=== PATIENT | male | born 1990 | race Caucasian/White ===

== ENCOUNTER 2017-08-30 21:57 | Emergency (ER) | payer SELFPAY ==
[2017-08-30] MEDS ORDERED: ONDANSETRON 4 MG/2 ML VIAL ONE (22:23)
[2017-08-30] MEDS ORDERED: KETOROLAC 30 MG/ML INJ ONE (22:23)
[2017-08-30] MEDS ORDERED: MORPHINE 4 MG/ML SYR ONE (22:43)
[2017-08-30 22:51] LABS: Absolute Lymphocytes (CBC) 2.3 K/uL (0.7-4.9); Absolute Monocytes 0.7 K/uL (0.1-1.3); Absolute Neutrophil 9.1 K/uL (1.8-8.0); Basophils % 0.5 % (0-1.3); Eosinophils % 0.9 % (0-4.4); Hematocrit 45.6 % (39.6-49.0); Lymphocytes % 18.5 % (15.3-44.8); MCH 31.1 pg (27.0-35.0); MCV 90.7 fL (80-100); RBC Red Blood Cell Count 5.03 M/uL (4.33-5.43)
[2017-08-30 22:56] LABS: Potassium 3.2 mEq/L (3.6-5.0)
[2017-08-30 23:03] LABS: Albumin 4.9 g/dL (3.2-5.5); Bilirubin Direct 0.1 mg/dL (0-0.2); Bilirubin Total 0.7 mg/dL (0.3-1.2); Protein, Total 7.7 g/dL (6.0-8.3)
[2017-08-30] MEDS ORDERED: POTASSIUM 25 MEQ EFFERV TAB ONE (23:23)
[2017-08-30] MEDS ORDERED: POTASSIUM CL SA 10 MEQ TAB PO ONE (23:33)
--- NOTE | 2017-08-31 00:14 | EDPHYS ---
Physician Documentation [facility] Name: Garrick Choe Age: 27 yrs Sex: Male : 1990 Arrival Date: 08/30/2017 Time: 22:01 Bed 16 Private MD: ED Physician Yamil Walker HPI: 08/30 23:29 This 27 yrs old Male presents to ER via Wheelchair with complaints of wa Possible Kidney Stone. 23:29 The patient complains of pain in the left flank. The pain does not radiate. Onset: The wa symptoms/episode began/occurred suddenly, just prior to arrival. Modifying factors: The symptoms are alleviated by nothing. the symptoms are aggravated by nothing. Associated signs and symptoms: Pertinent positives: nausea, Pertinent negatives: hematuria. Severity of pain: At its worst the pain was severe in the emergency department the pain is actually worse markedly. The patient has experienced similar episodes in the past, a few times. The patient has not recently seen a physician. Historical: - Allergies: 22:02 No Known Allergies; aj - Home Meds: 22:02 Seroquel Oral [Active]; Celexa Oral [Active]; aj - PMHx: 22:02 Seizures; Kidney stones; aj - PSHx: 22:02 None; aj - Immunization history:: Adult Immunizations up to date. - Social history:: Smoking status: Patient/guardian denies using tobacco. - Ebola Screening: : Patient negative for fever greater than or equal to 101.5 degrees Fahrenheit, and additional compatible Ebola Virus Disease symptoms Patient denies exposure to infectious person Patient denies travel to an Ebola-affected area in the 21 days before illness onset No symptoms or risks identified at this time. - Family history:: not pertinent. - Hospitalizations: : No recent hospitalization is reported. ROS: 23:31 Constitutional: Negative for fever, chills, and weight loss, Eyes: Negative for injury, wa pain, redness, and discharge, ENT: Negative for injury, pain, and discharge, Neck: Negative for injury, pain, and swelling, Cardiovascular: Negative for chest pain, palpitations, and edema, Respiratory: Negative for shortness of breath, cough, wheezing, and pleuritic chest pain, Back: Negative for injury and pain, : Negative for injury, bleeding, discharge, and swelling, MS/Extremity: Negative for injury and deformity, Skin: Negative for injury, rash, and discoloration, Neuro: Negative for headache, weakness, numbness, tingling, and seizure. 23:31 Abdomen/GI: Positive for of the left flank. 23:31 All other systems are negative. 23:31 Abdomen/GI: Negative for vomiting, diarrhea. wa Exam: 23:31 Constitutional: This is a well developed, well nourished patient who is awake, alert, wa and in no acute distress. Head/Face: Normocephalic, atraumatic. Eyes: Pupils equal round and reactive to light, extra-ocular motions intact. Lids and lashes normal. Conjunctiva and sclera are non-icteric and not injected. Cornea within normal limits. Periorbital areas with no swelling, redness, or edema. ENT: Nares patent. No nasal discharge, no septal abnormalities noted. Tympanic membranes are normal and external auditory canals are clear. Oropharynx with no redness, swelling, or masses, exudates, or evidence of obstruction, uvula midline. Mucous membranes moist. Neck: Trachea midline, no thyromegaly or masses palpated, and no cervical lymphadenopathy. Supple, full range of motion without nuchal rigidity, or vertebral point tenderness. No Meningismus. Cardiovascular: Regular rate and rhythm with a normal S1 and S2. No gallops, murmurs, or rubs. Normal PMI, no JVD. No pulse deficits. Respiratory: Lungs have equal breath sounds bilaterally, clear to auscultation and percussion. No rales, rhonchi or wheezes noted. No increased work of breathing, no retractions or nasal flaring. Back: No spinal tenderness. No costovertebral tenderness. Full range of motion. Male : Normal genitalia with no discharge or lesions. Skin: Warm, dry with normal turgor. Normal color with no rashes, no lesions, and no evidence of cellulitis. MS/ Extremity: Pulses equal, no cyanosis. Neurovascular intact. Full, normal range of motion. Neuro: Awake and alert, GCS 15, oriented to person, place, time, and situation. Cranial nerves II-XII grossly intact. Motor strength 5/5 in all extremities. Sensory grossly intact. Cerebellar exam normal. Normal gait. Psych: Awake, alert, with orientation to person, place and time. Behavior, mood, and affect are within normal limits. 23:31 Abdomen/GI: Inspection: abdomen appears normal, Bowel sounds: normal, Palpation: abdomen is soft and non-tender, in all quadrants. 23:32 Constitutional: The patient appears in obvious distress, moderately distressed, due to mo pain. Vital Signs: 22:02 BP 138 / 96; Pulse 89; Resp 22; Temp 98.6; Pulse Ox 100% on R/A; Weight 104.33 kg; aj Height 5 ft. 9 in. (175.26 cm); 23:24 BP 122 / 74; Pulse 92; Resp 20; Pulse Ox 98% on R/A; mt 22:02 Body Mass Index 33.96 (104.33 kg, 175.26 cm) aj MDM: 22:19 Patient medically screened. mo 23:32 Differential diagnosis: nephrolithiasis, pyelonephritis, UTI, testicular torsion. Data mo reviewed: vital signs, nurses notes. 23:33 Test interpretation: by ED physician or midlevel provider: labs noted for leukocytosis. mo low serum K. 08/31 00:09 Test interpretation: by ED physician or midlevel provider: CT abd/pelvis: 3 mm L UVJ mo stone w/ assoc hydroneph. labs noted for hematuria and low K. Response to treatment: the patient's symptoms have markedly improved after treatment. 08/30 22:20 Order name: Basic Metabolic Panel; Complete Time: 23:11 mo 08/30 23:33 Interpretation: CA 9.4. mo 08/30 22:20 Order name: CBC with Diff; Complete Time: 23:11 mo 08/30 22:20 Order name: Hepatic Function; Complete Time: 23:11 mo 08/30 22:20 Order name: Urine Microscopic Only mo 08/30 22:21 Order name: CT Abd/Pelvis - Without Cont mo 08/31 00:14 Order name: Urine Dipstick--Ancillary (enter results) 08/30 22:20 Order name: IV Saline Lock; Complete Time: 22:22 mo 08/30 22:20 Order name: Labs collected and sent; Complete Time: 22:22 mo Administered Medications: 08/30 22:25 Drug: TORadol 30 mg Route: IVP; Site: right forearm; cr4 22:37 Follow up: Response: No adverse reaction; Pain is unchanged, physician notified cr4 23:42 Follow up: Response: No adverse reaction cr4 22:25 Drug: Zofran 4 mg Route: IVP; Site: right forearm; cr4 22:35 Follow up: Response: No adverse reaction; Nausea is decreased cr4 22:46 Drug: morphine 4 mg Route: IVP; Site: right forearm; cr4 22:55 Follow up: Response: No adverse reaction; Pain is decreased cr4 23:38 Drug: Potassium Chloride 40 mEq Route: PO; cr4 08/31 00:20 Follow up: Response: No adverse reaction cr4 Disposition: 08/31/17 00:13 Discharged to Home. Impression: Left UVJ stone with associated hydronephrosis. - Condition is Stable. - Discharge Instructions: Kidney Stones, [id number]. - Prescriptions for ketorolac 10 mg Oral tablet - take 1 tablet by ORAL route every 8 hours not to exceed 40 mg in 24hrs; 15 tablet. Zofran 4 mg Oral Tablet - take 1 tablet by ORAL route every 12 hours As needed; 10 tablet. Flomax 0.4 mg Oral Capsule, Sust. Release 24 hr - take 1 capsule by ORAL route once daily 1/2 hour following the same meal each day; 5 capsule. - Medication Reconciliation Form, Thank You Letter, Antibiotic Education, Prescription Opioid Use form. - Follow up: Lyla Gordon MD; When: 2 - 3 days; Reason: Recheck today's complaints. - Problem is new. - Symptoms have improved. - Notes: take medicines as prescribed. follow up with the urologist within 1 week if symptoms persist Signatures: Dispatcher [employer] EDCharisma Reed RN RN aj Ruiz, Claudia, RN RN cr4 Yamil Walker MD MD wa Corrections: (The following items were deleted from the chart) 00:29 00:13 08/31/2017 00:13 Discharged to Home. Impression: Left UVJ stone with associated cr4 hydronephrosis. Condition is Stable. Forms are Medication Reconciliation Form, Thank You Letter, Antibiotic Education, Prescription Opioid Use. Follow up: Lyla Gordon; When: 2 - 3 days; Reason: Recheck today's complaints. Problem is new. Symptoms have improved. wa
--- NOTE | 2017-08-31 00:14 | ER ---
Nurse's Notes [facility] Name: Garrick Choe Age: 27 yrs Sex: Male : 1990 Arrival Date: 08/30/2017 Time: 22: Bed 16 Private MD: Diagnosis: Left UVJ stone with associated hydronephrosis Presentation: 08/30 22:01 Presenting complaint: Patient states: Left flank pain that started 20 min [employer]. aj Transition of care: patient was not received from another setting of care. Onset of symptoms was August 30, 2017. Risk Assessment: Do you want to hurt yourself or someone else? Patient reports no desire to harm self or others. Care prior to arrival: None. 22:01 Method Of Arrival: Wheelchair aj 22: Acuity: JOHN 3 aj 08/31 00:00 Initial Sepsis Screen: Does the patient meet any 2 criteria? No. Patient's initial cr4 sepsis screen is negative. Does the patient have a suspected source of infection? No. Patient's initial sepsis screen is negative. Triage Assessment: 08/30 22:02 General: Appears in no apparent distress. uncomfortable, Behavior is calm, cooperative, aj appropriate for age. Pain: Complains of pain in anterior aspect of left lateral abdomen and posterior aspect of left lateral abdomen. Neuro: Level of Consciousness is awake, alert, obeys commands, Oriented to person, place, time, situation, Appropriate for age. Respiratory: Airway is patent Respiratory effort is even, unlabored, Respiratory pattern is regular, symmetrical. GI: Abdomen is flat, non-distended. GI: Reports nausea, vomiting. : Reports pain in left flank(s). Derm: Skin is intact, is healthy with good turgor, Skin is pink, warm \T\ dry. normal. Historical: - Allergies: 22:02 No Known Allergies; aj - Home Meds: 22:02 Seroquel Oral [Active]; Celexa Oral [Active]; aj - PMHx: 22:02 Seizures; Kidney stones; aj - PSHx: 22:02 None; aj - Immunization history:: Adult Immunizations up to date. - Social history:: Smoking status: Patient/guardian denies using tobacco. - Ebola Screening: : Patient negative for fever greater than or equal to 101.5 degrees Fahrenheit, and additional compatible Ebola Virus Disease symptoms Patient denies exposure to infectious person Patient denies travel to an Ebola-affected area in the 21 days before illness onset No symptoms or risks identified at this time. - Family history:: not pertinent. - Hospitalizations: : No recent hospitalization is reported. Screenin:30 Abuse screen: Denies threats or abuse. Nutritional screening: No deficits noted. cr4 Tuberculosis screening: No symptoms or risk factors identified. Fall Risk None identified. Assessment: 22:07 General: Appears uncomfortable, well groomed, Behavior is anxious. Pain: Complains of cr4 pain in left flank/ Pain radiates to radiates across back. Pain currently is 10 out of 10 on a pain scale. Quality of pain is described as sharp, shooting, stabbing, Pain began 30 min ago. Is intermittent, Alleviated by nothing. Neuro: No deficits noted. Cardiovascular: No deficits noted. Respiratory: No deficits noted. GI: Bowel sounds present X 4 quads. Abd is soft and non tender X 4 quads. Reports nausea, vomiting, since 30 minutes. : Reports cramping, in left flank(s) lower back Denies burning with urination, cramping discharge. EENT: No deficits noted. Derm: Skin is clammy. Musculoskeletal: No deficits noted. 23:15 Reassessment: Patient and/or family updated on plan of care and expected duration. Pain cr4 level reassessed. Patient is alert, oriented x 3, equal unlabored respirations, skin warm/dry/pink. Patient states feeling better. Patient states symptoms have improved. back from CT. 23:43 Reassessment: reminded about need for urine IRAIDA.. cr4 Vital Signs: 22:02 BP 138 / 96; Pulse 89; Resp 22; Temp 98.6; Pulse Ox 100% on R/A; Weight 104.33 kg; aj Height 5 ft. 9 in. (175.26 cm); 23:24 BP 122 / 74; Pulse 92; Resp 20; Pulse Ox 98% on R/A; mt 22:02 Body Mass Index 33.96 (104.33 kg, 175.26 cm) aj ED Course: 22:01 Patient arrived in ED. es 22:02 Triage completed. aj 22:02 Arm band placed on right wrist. Patient placed in an exam room. aj 22:16 Inserted saline lock: 22 gauge in right forearm, using aseptic technique. Blood mt collected. 22:19 Yamil Walker MD is Attending Physician. wa 22:30 Patient has correct armband on for positive identification. Placed in gown. Bed in low cr4 position. Call light in reach. Side rails up X 1. 22:30 No provider procedures requiring assistance completed. cr4 22:32 Radiology exam delayed due to waiting on pain meds. mw3 23:04 CT Abd/Pelvis - Without Cont In Process Unspecified. EDMS 23:10 CT completed. Patient tolerated procedure well. Patient moved back from CT. kw1 08/31 00:13 Lyla Gordon MD is Referral Physician. wa 00:25 IV discontinued, intact, bleeding controlled, No redness/swelling at site. cr4 Administered Medications: 08/30 22:25 Drug: TORadol 30 mg Route: IVP; Site: right forearm; cr4 22:37 Follow up: Response: No adverse reaction; Pain is unchanged, physician notified cr4 23:42 Follow up: Response: No adverse reaction cr4 22:25 Drug: Zofran 4 mg Route: IVP; Site: right forearm; cr4 22:35 Follow up: Response: No adverse reaction; Nausea is decreased cr4 22:46 Drug: morphine 4 mg Route: IVP; Site: right forearm; cr4 22:55 Follow up: Response: No adverse reaction; Pain is decreased cr4 23:38 Drug: Potassium Chloride 40 mEq Route: PO; cr4 08/31 00:20 Follow up: Response: No adverse reaction cr4 Outcome: 00:13 Discharge ordered by . wa 00:25 Discharged to home ambulatory. cr4 00:25 Condition: improved 00:25 Discharge instructions given to patient, Instructed on discharge instructions, follow up and referral plans. medication usage, Demonstrated understanding of instructions, follow-up care, medications, Prescriptions given X 3. 00:29 Patient left the ED. cr4 Signatures: Dispatcher [employer] Charisma Hernadez RN RN aj Salyer, Edna es Ruiz, Claudia, RN RN cr4 Jazzmine Munguia mt, William, MD MD wa Wilhelm, Kimberly kw1 María Gaytan mw3 Corrections: (The following items were deleted from the chart) 08/30 22:37 22:[address] mw3 mw3
[2017-08-31 01:40] LABS: Urine Amorphous Sediment 1+ /HPF (NONE SEEN); Urine Bacteria <20 /HPF (NONE SEEN); Urine Culture Reflex Order NOT NEEDED; Urine Mucus 2+ /HPF (NONE SEEN); Urine RBC 20-50 /HPF (NONE SEEN)
[2017-08-31 01:41] LABS: Urine Blood 3+ (NEG); Urine Glucose NEGATIVE (NEG); Urine Protein 1+ (NEG)
--- NOTE | 2017-08-31 08:54 | RAD REPORT ---
EXAM DESCRIPTION: CT - Abdomen Pelvis Wo Contrast - 08/31/2017 3:06 am CLINICAL HISTORY: Abdominal pain left flank pain for 20 minutes COMPARISON: April 2015 TECHNIQUE: Computed axial tomography of the abdomen and pelvis was obtained. IV and oral contrast we re not requested. A preliminary report was generated by [employer] and reviewed prior to thi s dictation All CT scans are performed using dose optimization technique as appropriate and may include automated exposure control or mA/KV adjustment according to patient size. FINDINGS: The evaluation of solid organs, vessels and bowel is limited secondary to the lack of con trast administration. The liver, spleen, pancreas, and adrenals appear grossly normal. Mild left hydronephrosis is present. A 2.5 millimeter calculus is present within the distal left ureter near the ureteral vesicle junctio n. Small bilateral inguinal hernias contain fat. There is no evidence of diverticulitis. IMPRESSION: 2.5 millimeter calculus distal left ureter resulting in mild left hydronephrosis
== END 2017-08-31 00:29 | disposition home or self-care (01) ==
LOC: ER 21:57
DX: N13.2 Hydronephrosis with renal and ureteral calculous obstruction (principal); G40.909 Epilepsy, unspecified, not intractable, without status epilepticus
CPT/HCPCS: 36415; 74176; 80048; 80076; 81003; 81015; 85025; 96374; 96375; 99284; J2405

== ENCOUNTER 2017-09-06 19:43 | Emergency (ER) | payer SELFPAY ==
[2017-09-06] MEDS ORDERED: KETOROLAC 30 MG/ML INJ ONE (20:03)
[2017-09-06] MEDS ORDERED: NA CHLORIDE 0.9% 1,000 ML ONE (20:04)
[2017-09-06] MEDS ORDERED: HYDROCODONE/APAP 10/325 TAB ONE ×2 (20:23→21:56)
--- NOTE | 2017-09-06 21:40 | ER ---
Nurse's Notes [facility] Name: Garrick Choe Age: 27 yrs Sex: Male : 1990 Arrival Date: 09/06/2017 Time: 19:44 Bed 23 Private MD: None, None Diagnosis: Unspecified renal colic Presentation: 09/06 19:44 Presenting complaint: Patient states: that he was here recently and told that he had a fc kidney stone on the left. Now he is having pain to bilateral flanks that started 1 hr REGISTRY RN. Also having decreased urination. EMS bp 127/67 with heart rate of 108. Transition of care: patient was not received from another setting of care. Onset of symptoms was September 06, 2017 at 18:30. Risk Assessment: Do you want to hurt yourself or someone else? Patient reports no desire to harm self or others. Initial Sepsis Screen: Does the patient meet any 2 criteria? HR > 90 bpm. Yes Does the patient have a suspected source of infection? Yes: Dysuria/Frequency/Urgency/UTI. Care prior to arrival: None. 19:44 Method Of Arrival: EMS: [facility] [place] 19:44 Acuity: JOHN 3 fc Historical: - Allergies: 19:47 No Known Allergies; fc - Home Meds: 19:47 Celexa 10 mg oral tab 1 tab nightly [Active]; Seroquel 200 mg oral tab 1 tab nightly fc [Active]; - PMHx: 19:47 Kidney stones; Seizures; Bipolar disorder; Depression; fc - PSHx: 19:47 Appendectomy; fc - Immunization history:: Last tetanus immunization: up to date. - Social history:: Smoking status: Patient uses tobacco products, smokes one-half pack cigarettes per day, Patient uses alcohol, occasionally. street drugs, marijuana. - Ebola Screening: : Patient negative for fever greater than or equal to 101.5 degrees Fahrenheit, and additional compatible Ebola Virus Disease symptoms Patient denies exposure to infectious person Patient denies travel to an Ebola-affected area in the 21 days before illness onset. Screenin:48 Abuse screen: Denies threats or abuse. Nutritional screening: No deficits noted. fc Tuberculosis screening: No symptoms or risk factors identified. Fall Risk None identified. Vital Signs: 19:47 Temp 98.1(O); Weight 108.86 kg (R); Height 5 ft. 10 in. (177.80 cm) (R); Pain 10/10; fc 19:47 Body Mass Index 34.44 (108.86 kg, 177.80 cm) ED Course: 19:44 Patient arrived in ED. fc 19:44 None, None is Private Physician. 19:46 Jose Miguel Dewey MD is Attending Physician. gs 19:46 Triage completed. 19:47 Arm band placed on Patient placed in an exam room, on a stretcher. fc 19:48 Patient has correct armband on for positive identification. Bed in low position. Call fc light in reach. Side rails up X2. Pulse ox on. NIBP on. 19:48 Inserted saline lock: 20 gauge in left forearm, using aseptic technique. ,using aseptic fc technique. per Margarita REINA Blood collected. 20:11 Margarita Munoz, RN is Primary Nurse. tl3 20:53 Ultrasound completed. Patient tolerated well. sg3 21:38 Lyla Gordon MD is Referral Physician. gs 21:52 US Rp Exam Limited In Process Unspecified. EDMS Administered Medications: 20:03 Drug: NS 0.9% 1000 ml Route: IV; Rate: 1 bolus; Site: left forearm; kr2 20:08 Drug: TORadol 30 mg Route: IVP; Site: left forearm; kr2 20:22 Follow up: Response: Pain is unchanged, physician notified tl3 20:22 Drug: Taylor 10 mg-325 mg 1 tabs Route: PO; tl3 22:51 Drug: Taylor 10 mg-325 mg 1 tabs Route: PO; tl3 Outcome: 21:39 Discharge ordered by . gs 23:27 Patient left the ED. ed Signatures: Dispatcher [employer] EDMS Maribel Figueroa RN RN Jo Ann Milligan RN NUNO Jose Miguel Dewey MD MD Analilia Mckeon RN RN pieter2 T[place] sg3 Margarita Munoz, RN RN tl3
--- NOTE | 2017-09-06 21:40 | EDPHYS ---
Physician Documentation [facility] Name: Garrick Choe Age: 27 yrs Sex: Male : 1990 Arrival Date: 09/06/2017 Time: 19:44 Bed 23 Private MD: None, None ED Physician Jose Miguel Dewey HPI: 09/06 23:55 This 27 yrs old Male presents to ER via EMS with complaints of Flank Pain. gs 23:55 The patient complains of pain in the left low back. The pain radiates to the posterior gs aspect of left lateral abdomen. Onset: The symptoms/episode began/occurred 1 week(s) ago, and became persistent. Modifying factors: The symptoms are alleviated by nothing. the symptoms are aggravated by nothing. Associated signs and symptoms: Pertinent negatives: fever, hematuria. Severity of pain: At its worst the pain was moderate in the emergency department the pain is unchanged. The patient has experienced similar episodes in the past, several times. The patient has been recently seen at the [facility] Emergency Department, for similar complaints. Historical: - Allergies: 19:47 No Known Allergies; fc - Home Meds: 19:47 Celexa 10 mg oral tab 1 tab nightly [Active]; Seroquel 200 mg oral tab 1 tab nightly fc [Active]; - PMHx: 19:47 Kidney stones; Seizures; Bipolar disorder; Depression; fc - PSHx: 19:47 Appendectomy; fc - Immunization history:: Last tetanus immunization: up to date. - Social history:: Smoking status: Patient uses tobacco products, smokes one-half pack cigarettes per day, Patient uses alcohol, occasionally. street drugs, marijuana. - Ebola Screening: : Patient negative for fever greater than or equal to 101.5 degrees Fahrenheit, and additional compatible Ebola Virus Disease symptoms Patient denies exposure to infectious person Patient denies travel to an Ebola-affected area in the 21 days before illness onset. ROS: 23:55 All other systems are negative. gs Exam: 23:55 Head/Face: Normocephalic, atraumatic. Eyes: Pupils equal round and reactive to light, gs extra-ocular motions intact. Lids and lashes normal. Conjunctiva and sclera are non-icteric and not injected. Cornea within normal limits. Periorbital areas with no swelling, redness, or edema. ENT: Nares patent. No nasal discharge, no septal abnormalities noted. Tympanic membranes are normal and external auditory canals are clear. Oropharynx with no redness, swelling, or masses, exudates, or evidence of obstruction, uvula midline. Mucous membranes moist. Neck: Trachea midline, no thyromegaly or masses palpated, and no cervical lymphadenopathy. Supple, full range of motion without nuchal rigidity, or vertebral point tenderness. No Meningismus. Chest/axilla: Normal chest wall appearance and motion. Nontender with no deformity. No lesions are appreciated. Cardiovascular: Regular rate and rhythm with a normal S1 and S2. No gallops, murmurs, or rubs. Normal PMI, no JVD. No pulse deficits. Respiratory: Lungs have equal breath sounds bilaterally, clear to auscultation and percussion. No rales, rhonchi or wheezes noted. No increased work of breathing, no retractions or nasal flaring. Abdomen/GI: Soft, non-tender, with normal bowel sounds. No distension or tympany. No guarding or rebound. No evidence of tenderness throughout. Back: No spinal tenderness. No costovertebral tenderness. Full range of motion. Skin: Warm, dry with normal turgor. Normal color with no rashes, no lesions, and no evidence of cellulitis. MS/ Extremity: Pulses equal, no cyanosis. Neurovascular intact. Full, normal range of motion. Neuro: Awake and alert, GCS 15, oriented to person, place, time, and situation. Cranial nerves II-XII grossly intact. Motor strength 5/5 in all extremities. Sensory grossly intact. Cerebellar exam normal. Normal gait. 23:55 Constitutional: The patient appears alert, awake, uncomfortable. Vital Signs: 19:47 Temp 98.1(O); Weight 108.86 kg (R); Height 5 ft. 10 in. (177.80 cm) (R); Pain 10/10; fc 19:47 Body Mass Index 34.44 (108.86 kg, 177.80 cm) fc MDM: 19:56 Patient medically screened. gs 23:55 Differential diagnosis: nephrolithiasis, pyelonephritis, UTI. Data reviewed: vital gs signs, nurses notes. Counseling: I had a detailed discussion with the patient and/or guardian regarding: the historical points, exam findings, and any diagnostic results supporting the discharge/admit diagnosis, radiology results, stone has passed. Response to treatment: the patient's symptoms have markedly improved after treatment, and as a result, I will discharge patient. 09/06 19:56 Order name: Urine Microscopic Only; Complete Time: 22:18 09/06 21:56 Order name: Urine Dipstick--Ancillary (enter results); Complete Time: 22:18 2 09/06 19:56 Order name: US Rp Exam Limited; Complete Time: 22:18 09/06 19:56 Order name: Urine Dipstick-Ancillary (obtain specimen) gs Administered Medications: 20:03 Drug: NS 0.9% 1000 ml Route: IV; Rate: 1 bolus; Site: left forearm; kr2 20:08 Drug: TORadol 30 mg Route: IVP; Site: left forearm; kr2 20:22 Follow up: Response: Pain is unchanged, physician notified tl3 20:22 Drug: [place] 10 mg-325 mg 1 tabs Route: PO; tl3 22:51 Drug: [place] 10 mg-325 mg 1 tabs Route: PO; tl3 Disposition: 09/06/17 21:39 Discharged to Home. Impression: Unspecified renal colic. - Condition is Stable. - Discharge Instructions: Kidney Stones. - Prescriptions for Tylenol- Codeine #4 300-60 mg Oral Tablet - take 1 tablet by ORAL route every 6 hours As needed; 10 tablet. - Medication Reconciliation Form, Thank You Letter, Antibiotic Education, Prescription Opioid Use form. - Follow up: Lyla Gordon MD; When: 2 - 3 days; Reason: Re-evaluation by your physician. Signatures: Dispatcher [employer] EDAL Maribel Figueroa RN RN Jo Ann Milligan RN RN Jose Miguel Flanagan MD MD Analilia Mckeon RN RN kr2 Margarita Munoz RN RN tl3 Corrections: (The following items were deleted from the chart) 23:27 21:39 09/06/2017 21:39 Discharged to Home. Impression: Unspecified renal colic. Condition is Stable. Forms are Medication Reconciliation Form, Thank You Letter, Antibiotic Education, Prescription Opioid Use. Follow up: Lyla Gordon; When: 2 - 3 days; Reason: Re-evaluation by your physician. gs
[2017-09-06 21:57] LABS: Urine Bacteria <20 /HPF (NONE SEEN); Urine RBC <5 /HPF (NONE SEEN)
[2017-09-06 21:58] LABS: Urine Culture Reflex Order NOT NEEDED
[2017-09-06 21:58] LABS: Urine Blood 2+ (NEG); Urine Glucose NEGATIVE (NEG); Urine Protein NEGATIVE (NEG); Urine pH 6.5 (5.0-7.0)
--- NOTE | 2017-09-06 21:59 | RAD REPORT ---
EXAM DESCRIPTION: US - Renal Ultrasound-Limited - 09/06/2017 9:52 pm CLINICAL HISTORY: left kidney;Pain COMPARISON: Abdomen Pelvis Wo Contrast dated 08/30/2017 FINDINGS: Only the left kidney was imaged per referring physician request. The left kidney is normal in size, shape and echotexture. The left kidney measures 13.2 x 6.5 x 6.0 cm. No hydronephrosis, focal mass or perinephric fluid. The urinary bladder is incompletely distended without gross abnormality seen. IMPRESSION: Normal left kidney.
== END 2017-09-06 23:27 | disposition home or self-care (01) ==
LOC: ER 19:43
DX: N23 Unspecified renal colic (principal); F31.9 Bipolar disorder, unspecified; F32.9 Major depressive disorder, single episode, unspecified; F17.210 Nicotine dependence, cigarettes, uncomplicated
CPT/HCPCS: 76775; 81003; 81015; 96374; 99284; J7030

== ENCOUNTER 2018-03-04 23:14 | Emergency (ER) | payer SELFPAY ==
--- NOTE | 2018-03-05 00:20 | ER ---
Nurse's Notes [facility] Name: Garrick Choe Age: 27 yrs Sex: Male : 1990 Arrival Date: 03/04/2018 Time: 23:15 Bed 26 Private MD: Diagnosis: Cellulitis of right finger Presentation: 03/04 23:36 Presenting complaint: Patient states: he has a blister on his R ring finger and is aa1 concerned it may be infected. Transition of care: patient was not received from another setting of care. Onset of symptoms was March 01, 2018. Risk Assessment: Do you want to hurt yourself or someone else? Patient reports no desire to harm self or others. Initial Sepsis Screen: Does the patient meet any 2 criteria? No. Patient's initial sepsis screen is negative. Does the patient have a suspected source of infection? Yes: Skin breakdown/wound. Care prior to arrival: None. 23:36 Method Of Arrival: Ambulatory aa1 23:36 Acuity: JOHN 4 aa1 Triage Assessment: 23:38 General: Appears in no apparent distress. comfortable, Behavior is calm, cooperative, aa1 appropriate for age. Historical: - Allergies: 23:38 No Known Allergies; aa1 - Home Meds: 23:38 Klonopin Oral [Active]; Celexa 10 mg Oral tab 1 tab nightly [Active]; Seroquel 200 mg aa1 Oral tab 1 tab nightly [Active]; - PMHx: 23:38 Bipolar disorder; Depression; Kidney stones; Seizures; aa1 - PSHx: 23:38 Appendectomy; aa1 - Immunization history:: Last tetanus immunization: up to date. - Social history:: Smoking status: Patient/guardian denies using tobacco. - Ebola Screening: : No symptoms or risks identified at this time. Screenin/19 00:00 Fall Risk None identified. rr5 00:11 Abuse screen: Denies threats or abuse. Denies injuries from another. Nutritional aj1 screening: No deficits noted. Tuberculosis screening: No symptoms or risk factors identified. Assessment: 00:11 General: Appears in no apparent distress. comfortable, Behavior is calm, cooperative, aj1 appropriate for age. Pain: Complains of pain in palmar aspect of proximal phalanx of right ring finger Pain currently is 5 out of 10 on a pain scale. Neuro: Level of Consciousness is awake, alert, obeys commands. Cardiovascular: Patient's skin is warm and dry. Respiratory: Airway is patent Respiratory effort is even, unlabored, Respiratory pattern is regular, symmetrical. GI: No signs and/or symptoms were reported involving the gastrointestinal system. : No signs and/or symptoms were reported regarding the genitourinary system. EENT: No signs and/or symptoms were reported regarding the EENT system. Derm: Skin is pink, warm \T\ dry. redness and swelling noted to right ring finger. 00:34 Reassessment: Patient appears in no apparent distress at this time. wound cleaning rr5 done. discharge instruction given and explained with no complaints made. Vital Signs: 03/04 23:38 BP 143 / 91; Pulse 86; Resp 16; Temp 97.5; Pulse Ox 99% on R/A; Weight 89.81 kg; Height aa1 5 ft. 9 in. (175.26 cm); Pain 5/10; 03/05 00:20 BP 140 / 80; Pulse 82; Resp 17; Pulse Ox 99% ; rr5 03/04 23:38 Body Mass Index 29.24 (89.81 kg, 175.26 cm) aa1 ED Course: 03/04 23:15 Patient arrived in ED. ds1 23:37 Triage completed. aa1 23:38 Arm band placed on right wrist. Patient placed in an exam room, on a stretcher. aa1 23:40 Thu Lewis, NUNO is Primary Nurse. aj1 03/05 00:07 [facility] snw 00:07 Herb Norwood MD is Attending Physician. snw 00:11 Patient has correct armband on for positive identification. Bed in low position. Call aj1 light in reach. Side rails up X 1. 00:11 No provider procedures requiring assistance completed. aj1 00:35 Patient did not have IV access during this emergency room visit. rr5 Administered Medications: 00:30 Drug: Doxycycline 100 mg Route: PO; rr5 00:34 Follow up: Response: Medication administered at discharge. rr5 Outcome: :19 Discharge ordered by . snw 00:35 Discharged to home ambulatory. rr5 00:35 Condition: stable 00:35 Discharge instructions given to patient, Instructed on discharge instructions, follow up and referral plans. medication usage, wound care, Demonstrated understanding of instructions, follow-up care, medications, Prescriptions given X 2. 00:37 Patient left the ED. rr5 Signatures: Thu Lewis RN RN aj1 Yamilex Mills RN RN aa1 Tita Saravia, OPERATIONS BOARDMAN-C [employer]PERATIONS [employer]AR[employer]AN-Csnw Carolyn Braxton ds1 Munir Pacheco RN RN rr5
--- NOTE | 2018-03-05 00:20 | EDPHYS ---
Physician Documentation [facility] Name: Garrick Choe Age: 27 yrs Sex: Male : 1990 Arrival Date: 03/04/2018 Time: 23:15 Bed 26 Private MD: ED Physician Herb Norwood HPI: 03/05 00:17 This 27 yrs old Male presents to ER via Ambulatory with complaints of Sore on snw Finger. 00:17 The patient or guardian reports swelling, erythema. The complaints affect the palmar snw aspect of proximal phalanx of right ring finger. Context: The problem was sustained at an unknown location, resulted from an unknown cause. Onset: The symptoms/episode began/occurred suddenly, 1 week(s) ago, and became persistent. Associated signs and symptoms: Pertinent positives: warmth. Severity of symptoms: At their worst the symptoms were moderate. The patient has not experienced similar symptoms in the past. It is unknown whether or not the patient has recently seen a physician. tetanus up to date, hx of [facility]. Historical: - Allergies: 03/04 23:38 No Known Allergies; aa1 - Home Meds: 23:38 Klonopin Oral [Active]; Celexa 10 mg Oral tab 1 tab nightly [Active]; Seroquel 200 mg aa1 Oral tab 1 tab nightly [Active]; - PMHx: 23:38 Bipolar disorder; Depression; Kidney stones; Seizures; aa1 - PSHx: 23:38 Appendectomy; aa1 - Immunization history:: Last tetanus immunization: up to date. - Social history:: Smoking status: Patient/guardian denies using tobacco. - Ebola Screening: : No symptoms or risks identified at this time. ROS: 03/05 00:16 Constitutional: Negative for fever, chills, and weight loss, Eyes: Negative for injury, snw pain, redness, and discharge, ENT: Negative for injury, pain, and discharge, Neck: Negative for injury, pain, and swelling, Cardiovascular: Negative for chest pain, palpitations, and edema, Respiratory: Negative for shortness of breath, cough, wheezing, and pleuritic chest pain, Abdomen/GI: Negative for abdominal pain, nausea, vomiting, diarrhea, and constipation, Back: Negative for injury and pain, : Negative for injury, bleeding, discharge, and swelling, MS/Extremity: Negative for injury and deformity, Neuro: Negative for headache, weakness, numbness, tingling, and seizure, Psych: Negative for depression, anxiety, suicide ideation, homicidal ideation, and hallucinations. Skin: Positive for cellulitis, of the palmar aspect of proximal phalanx of right ring finger. Exam: 00:16 Constitutional: This is a well developed, well nourished patient who is awake, alert, snw and in no acute distress. Head/Face: Normocephalic, atraumatic. Eyes: Pupils equal round and reactive to light, extra-ocular motions intact. Lids and lashes normal. Conjunctiva and sclera are non-icteric and not injected. Cornea within normal limits. Periorbital areas with no swelling, redness, or edema. ENT: Nares patent. No nasal discharge, no septal abnormalities noted. Tympanic membranes are normal and external auditory canals are clear. Oropharynx with no redness, swelling, or masses, exudates, or evidence of obstruction, uvula midline. Mucous membranes moist. Neck: Trachea midline, no thyromegaly or masses palpated, and no cervical lymphadenopathy. Supple, full range of motion without nuchal rigidity, or vertebral point tenderness. No Meningismus. Chest/axilla: Normal chest wall appearance and motion. Nontender with no deformity. No lesions are appreciated. Cardiovascular: Regular rate and rhythm with a normal S1 and S2. No gallops, murmurs, or rubs. Normal PMI, no JVD. No pulse deficits. Respiratory: Lungs have equal breath sounds bilaterally, clear to auscultation and percussion. No rales, rhonchi or wheezes noted. No increased work of breathing, no retractions or nasal flaring. Abdomen/GI: Soft, non-tender, with normal bowel sounds. No distension or tympany. No guarding or rebound. No evidence of tenderness throughout. Back: No spinal tenderness. No costovertebral tenderness. Full range of motion. MS/ Extremity: Pulses equal, no cyanosis. Neurovascular intact. Full, normal range of motion. Neuro: Awake and alert, GCS 15, oriented to person, place, time, and situation. Cranial nerves II-XII grossly intact. Motor strength 5/5 in all extremities. Sensory grossly intact. Cerebellar exam normal. Normal gait. Psych: Awake, alert, with orientation to person, place and time. Behavior, mood, and affect are within normal limits. 00:16 Skin: Appearance: normal except for affected area, cellulitis, that is mild, well demarcated, on the palmar aspect of proximal phalanx of right ring finger. Vital Signs: 03/04 23:38 BP 143 / 91; Pulse 86; Resp 16; Temp 97.5; Pulse Ox 99% on R/A; Weight 89.81 kg; Height aa1 5 ft. 9 in. (175.26 cm); Pain 5/10; 03/05 00:20 BP 140 / 80; Pulse 82; Resp 17; Pulse Ox 99% ; rr5 03/04 23:38 Body Mass Index 29.24 (89.81 kg, 175.26 cm) aa1 MDM: 00:11 Patient medically screened. snw 00:21 Data reviewed: vital signs, nurses notes. Data interpreted: Pulse oximetry: on room air snw is 99 %. Interpretation: normal. Counseling: I had a detailed discussion with the patient and/or guardian regarding: the historical points, exam findings, and any diagnostic results supporting the discharge/admit diagnosis, the presence of at least one elevated blood pressure reading (>120/80) during this emergency department visit, the need for outpatient follow up, for definitive care, to return to the emergency department if symptoms worsen or persist or if there are any questions or concerns that arise at home. Special discussion: I have referred the patient to see his PCP for further evaluation of high blood pressure. Based on the history and exam findings, there is no indication for further emergent testing or inpatient evaluation. I discussed with the patient/guardian the need to see the hand specialist for further evaluation of the symptoms. I discussed with the patient/guardian the need to see the primary care provider for further evaluation of the symptoms. Administered Medications: 00:30 Drug: Doxycycline 100 mg Route: PO; rr5 00:34 Follow up: Response: Medication administered at discharge. rr5 Disposition: 01:07 Co-signature as Attending Physician, Herb Norwood MD. rn Disposition: 03/05/18 00:19 Discharged to Home. Impression: Cellulitis of right finger. - Condition is Stable. - Discharge Instructions: Cellulitis, Adult. - Prescriptions for Doxycycline Hyclate 100 mg Oral Tablet - take 1 tablet by ORAL route every 12 hours; 20 tablet. Diclofenac Sodium 75 mg Oral Tablet Sustained Release - take 1 tablet by ORAL route 2 times per day; 30 tablet. - Work release form, Medication Reconciliation Form, Thank You Letter, Antibiotic Education, Prescription Opioid Use form. - Follow up: Private Physician; When: 1 - 2 days; Reason: Recheck today's complaints, Continuance of care, Re-evaluation by your physician. Follow up: Emergency Department; When: As needed; Reason: Worsening of condition. Signatures: Yamilex Mills RN RN aa1 Tita Saravia, SAP BOBJ DEVELOPER-C SAP BOBJ DEVELOPER-Csnw Herb Norwood MD MD rn Roque, Raymond, RN RN rr5 Corrections: (The following items were deleted from the chart) 00:37 00:19 03/05/2018 00:19 Discharged to Home. Impression: Cellulitis of right finger. rr5 Condition is Stable. Forms are Medication Reconciliation Form, Thank You Letter, Antibiotic Education, Prescription Opioid Use. Follow up: Private Physician; When: 1 - 2 days; Reason: Recheck today's complaints, Continuance of care, Re-evaluation by your physician. Follow up: Emergency Department; When: As needed; Reason: Worsening of condition. snw
[2018-03-05] MEDS ORDERED: DOXYCYCLINE 100 MG CAP PO ONE (00:32)
== END 2018-03-05 00:37 | disposition home or self-care (01) ==
LOC: ER 23:14
DX: L03.011 Cellulitis of right finger (principal); F31.9 Bipolar disorder, unspecified; F32.9 Major depressive disorder, single episode, unspecified; G40.909 Epilepsy, unspecified, not intractable, without status epilepticus
CPT/HCPCS: 99283